=== PATIENT | male | born 1985 | race Caucasian/White ===

== ENCOUNTER 2018-07-06 23:31 | Inpatient (IN) | payer OTHER ==
[~2018-07-06] VITALS: Ht 175.3 cm; Wt 59.0 kg
[2018-07-06 23:45] VITALS: BP 138/63
[2018-07-06] MEDS ORDERED: NOVOLIN R100 UNIT/1 (23:53)
[2018-07-07] VITALS (16 sets, daily range): BP systolic 127–162; BP diastolic 78–95
[2018-07-07 00:17] LABS: HEMATOCRIT 53.2 % (42.0-52.0); HEMOGLOBIN 14.5 gm/dL (14.0-18.0); MCH 33.9 pg (26.0-34.0); MCHC 27.2 g/dL (28.0-37.0); MCV 124.7 fL (80.0-100.0); MPV 10.5 fl. (7.2-11.1); NUCLEATED RBCS 0 /100WBC; PLATELET COUNT* 285 thou/uL (150-400); RBC 4.27 mil/uL (4.50-6.00); RDW-CV 15.2 % (10.5-14.5); WBC 12.6 thou/uL (4.0-11.0)
[2018-07-07 00:29] LABS: BE -22.1 mmol/L (-2 to +3)
[2018-07-07 00:30] LABS: pH 7.121 (7.340-7.450)
[2018-07-07 00:31] LABS: PCO2 < 17.0 mmHg (35.0-45.0); PO2 125.7 mmHg (75.0-100.0)
[2018-07-07 00:38] LABS: ALBUMIN 4.1 g/dL (3.4-5.0); ALKALINE PHOSPHATASE 114 U/L (46-116); BUN 45 mg/dL (7-18); CALCIUM 8.6 mg/dL (8.5-10.1); CREATININE 3.8 mg/dL (0.6-1.3); LIPASE 1012 U/L (73-393); SGOT 64 U/L (15-37); SGPT 75 U/L (30-65); TOTAL BILIRUBIN 0.9 mg/dL (<0.1-1.0); TOTAL PROTEIN 7.5 g/dL (6.4-8.2); TROPONIN-I LEVEL <0.06 ng/mL (<0.06)
[2018-07-07 00:42] LABS: ANION GAP 33 mmol/L (7-16); CHLORIDE 72 mmol/L (98-107); CO2 9 mmol/L (21-32); POTASSIUM 6.3 mmol/L (3.5-5.1); SODIUM 114 mmol/L (136-145)
[2018-07-07 00:57] LABS: GLUCOSE 1897 mg/dL (70-99)
[2018-07-07 00:59] LABS: ABSOLUTE LYMPHOCYTES 0.1 thou/uL (0.8-5.3); ABSOLUTE MONOCYTES 0.4 thou/uL (0.0-1.2); ABSOLUTE NEUTROPHILS 12.1 thou/uL (1.6-8.1); PLATELET ESTIMATE ADEQUATE
[2018-07-07 01:00] LABS: ANISOCYTOSIS 1+; MACROCYTES 1+
[2018-07-07 01:32] LABS: URINE BILIRUBIN NEGATIVE (Negative); URINE BLOOD TRACE (Negative); URINE CLARITY CLEAR; URINE COLOR YELLOW; URINE GLUCOSE-RANDOM 3+ (Negative); URINE KETONES 2+ (Negative); URINE LEUKOCYTES-REFLEX NEGATIVE (Negative); URINE NITRITE-REFLEX NEGATIVE (Negative); URINE PROTEIN NEGATIVE (Negative); URINE SPECIFIC GRAVITY <= 1.005 (1.005-1.030); URINE UROBILINOGEN 0.2 E.U./dl (0.2-1.0)
[2018-07-07 03:46] LABS: CALCIUM 8.3 mg/dL (8.5-10.1); CREATININE 3.1 mg/dL (0.6-1.3)
[2018-07-07 03:48] LABS: POTASSIUM 4.6 mmol/L (3.5-5.1)
[2018-07-07 07:59] LABS: AMP/METHAMP Negative (Negative); BARBITURATES Negative (Negative); BENZODIAZEPINES Negative (Negative); COCAINE Negative (Negative); METHADONE Negative (Negative); OPIATES Negative (Negative); PCP Negative (Negative); THC Negative (Negative)
[2018-07-07 08:00] LABS: CALCIUM 9.2 mg/dL (8.5-10.1); CREATININE 2.4 mg/dL (0.6-1.3); MAGNESIUM 2.2 mg/dL (1.8-2.4); POTASSIUM 3.7 mmol/L (3.5-5.1)
--- NOTE | 2018-07-07 09:18 | NUR ---
RN RESUMED CARE OF PT THIS SHIFT. PT DENIES PAIN, NAUSEA, AND VOMITING SINCE LAST NIGHT AROUND MIDNIGHT. STATES HIS THROAT IS DRY AND SORE FROM BEING NPO. A&OX4. USING URINAL. VSS. ON ROOM AIR. REMAINS ON IVF AND INSULIN GTT. GI CONSULT PLACED AND PENDING. PT DENIES ANY FURTHER QUESTIONS/CONCERNS.
[2018-07-07 12:17] LABS: CALCIUM 9.2 mg/dL (8.5-10.1); CREATININE 1.8 mg/dL (0.6-1.3); MAGNESIUM 2.1 mg/dL (1.8-2.4); POTASSIUM 3.6 mmol/L (3.5-5.1)
--- NOTE | 2018-07-07 13:33 | EKG ---
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: [place] : 1985 Requested By: Jeremías Roman Order Number: [id number] MD: Tyler Gibbs Measurements Intervals [place] Rate: 123 P: 94 VT: 138 QRS: 95 QRSD: 98 T: -5 QT: 326 QTc: 467 Interpretive Statements Sinus tachycardia Borderline right axis deviation poor r wave progression Borderline repolarization abnormality ST elev, probable normal early repol pattern Baseline wander in lead(s) III,aVL,V1,V2 No previous ECG available for comparison Electronically Signed On 07-07-2018 13:33:33 CDT by Tyler Gibbs [email or web address] <ELECTRONICALLY SIGNED> By: Tyler Gibbs MD, FAC 07/07/18 1333 0001 0001 Tyler Gibbs MD, FAC /EPI
--- NOTE | 2018-07-07 15:59 | NUR ---
PT ADVACING TOWARDS GOALS EXPECTED. VSS. REMAINS ON ROOM AIR. BS STABLE. OFF INSULIN GTT THIS AFTERNOON. BS ACHS. IVF CONTINUE. TOLERATING CLEAR LIQUID/DIABETIC DIET, WILL ADVANCE TO REGULAR/DIABETIC DIET THIS EVENING. DENIES PAIN. EXPECTED TO DOWNGRADE THIS EVENING OR TOMORROW MORNING.
[2018-07-07 16:18] LABS: CALCIUM 8.9 mg/dL (8.5-10.1); CREATININE 1.5 mg/dL (0.6-1.3)
[2018-07-08] VITALS: BP 133/84
[2018-07-08 02:08] LABS: GLYCOHEMOGLOBIN (HGB A1C) 7.6 % (4.8-5.6)
[2018-07-08 04:00] VITALS: BP 143/90
--- NOTE | 2018-07-08 05:01 | NUR ---
PATIENT PARTIALLY PROGRESSING TOWARDS GOALS: PATIENT'S PAIN PARTIALLY MANAGED WITH PRN MEDICATION AND COLD APPLICATION. HOWEVER, PATIENT'S BLOOD PRESSURE SOFT THROUGHOUT SHIFT. PATIENT ASYMPTOMATIC OF LOW BP. PATIENT INSTRUCTED TO CALL STAFF BEFORE AMBULATING. PATIENT ON ROOM AIR WITH SATS >92%. HOURLY ROUNDING OBSERVED. CALL LIGHT WITHIN REACH
[2018-07-08 05:18] LABS: ALBUMIN 3.6 g/dL (3.4-5.0); CALCIUM 8.5 mg/dL (8.5-10.1); CREATININE 1.3 mg/dL (0.6-1.3); PHOSPHORUS* 2.3 mg/dL (2.5-4.9); POTASSIUM 3.6 mmol/L (3.5-5.1); TOTAL BILIRUBIN 0.7 mg/dL (<0.1-1.0); TOTAL PROTEIN 6.4 g/dL (6.4-8.2)
--- NOTE | 2018-07-08 05:20 | NUR ---
PATIENT TRANSFERRED TO UNIT AT 2135 FROM ICU. PATIENT PROGRESSING TOWARDS GOALS: PATIENT DENIES PAIN, DISCOMFORT, AND NAUSEA THROUGHOUT SHIFT. ACCUCHECK ACHS. BLOOD SUGAR THIS EVENING 276 TREATED WITH SLIDING SCALE INSULIN. IVF INFUSING PER ORDERS. PATIENT UP AD TALITA IN ROOM. PATIENT TOLERATING CLEAR LIQUIDS. HOURLY ROUNDING OBSERVED. CALL LIGHT WITHIN REACH
[2018-07-08 06:22] LABS: ABSOLUTE LYMPHOCYTES 1.3 thou/uL (0.8-5.3); ABSOLUTE MONOCYTES 0.4 thou/uL (0.0-1.2); ABSOLUTE NEUTROPHILS 8.1 thou/uL (1.6-8.1); BASOPHILS 0.4 %; EOSINOPHILS 0.1 %; HEMATOCRIT 39.4 % (42.0-52.0); HEMOGLOBIN 13.6 gm/dL (14.0-18.0); MCH 33.8 pg (26.0-34.0); MCHC 34.5 g/dL (28.0-37.0); MONOCYTES 4.4 %; NUCLEATED RBCS 0 /100WBC; POLYS 82.1 %; RBC 4.03 mil/uL (4.50-6.00); RDW-CV 14.7 % (10.5-14.5); WBC 9.9 thou/uL (4.0-11.0)
[2018-07-08 06:27] LABS: MCV 97.9 fL (80.0-100.0); PLATELET COUNT* 136 thou/uL (150-400)
[2018-07-08 08:00] VITALS: BP 144/80
[2018-07-08 11:16] LABS: URINE BILIRUBIN NEGATIVE (Negative); URINE BLOOD NEGATIVE (Negative); URINE CLARITY CLEAR; URINE COLOR YELLOW; URINE GLUCOSE-RANDOM 3+ (Negative); URINE KETONES 2+ (Negative); URINE LEUKOCYTES NEGATIVE (Negative); URINE NITRITE NEGATIVE (Negative); URINE PROTEIN NEGATIVE (Negative); URINE SPECIFIC GRAVITY <= 1.005 (1.005-1.030); URINE UROBILINOGEN 0.2 E.U./dl (0.2-1.0)
--- NOTE | 2018-07-08 13:24 | NUR ---
ASSUMED CARE OF PATIENT THIS AM AT 0730. PATIENT IS ALERT AN ORIENTED X 4. HE DENIES PAIN AND DISCOMFORT. PATIENT IS DRINKING A LOT OF WATER. HIS BLOOD SUGARS HAVE BEEN >[address] TREVINO IN TO ROUND PLANS DISCUSSED ABOUT DISCHARGING PATIENT TO HOME. DR FARIA PAGED TO DISCUSS SEEING PATIENT PRIOR TO DISCHARGE. DR FARIA IN AND DISCHARGE OKAYED.
[2018-07-08 13:36] VITALS: BP 144/80
--- NOTE | 2018-07-10 12:32 | CON ---
[address] [address] CONSULTATION Name: PRINCE,VINHBASIA SYKESEL Room: [address] IN M.R.#: [id number] Admission: 07/07/18 Attend Phys: Kenn Griggs MD Discharge: 07/08/18 Date of : 81 Report #: [id number] THIS REPORT FOR: //name// CC: Kenn Griggs [facility] physician/PCP DATE OF SERVICE: 07/08/2018 REASON FOR CONSULT: Nausea and vomiting. HISTORY OF PRESENT ILLNESS: This is a 32-year-old male with history of diabetes who reports that his sugar was running really high. He had some nausea and vomiting and CT initially had shown evidence of partial obstruction. His lipase was also elevated in the range of 1100, but CT did not show any evidence of pancreatitis. Since the patient's gap has been closed, he is feeling better. Denies nausea and vomiting and his labs have improved. He has tolerated diet without any abdominal pain, nausea, and vomiting. He had a bowel movement, which was free of blood. PAST MEDICAL HISTORY: Significant for history of diabetes mellitus. ALLERGIES: No known drug allergy. MEDICATIONS: Please refer to hospital MAR. SOCIAL HISTORY: The patient used to live in [place], but they have moved here. His conversion man is still there and he follows with him. He has not set up a primary care physician in [place] yet. The patient denies tobacco, alcohol, illicit drugs. FAMILY HISTORY: Noncontributory. PHYSICAL EXAMINATION: VITAL SIGNS: Reveals normal vitals. LUNGS: Clear. CARDIOVASCULAR: Regular. ABDOMEN: Soft, nontender, nondistended. Bowel sounds are positive. LABORATORY DATA: Revealed sodium of 140, potassium 3.6, BUN is 13, creatinine 1.3, glucose 196, AST is 51, ALT 24, alkaline phosphatase 73, lipase is 1012, hemoglobin A1c is 7.6. WBC is 9.9 with hemoglobin of 13.6 and platelet of 136. IMAGING: CT of abdomen and pelvis was obtained [place]. [place] [address] CONSULTATION Name: VINH MORRISON Room: [address] IN ..#: [id number] Admission: 07/07/18 Attend Phys: Kenn Griggs MD Discharge: 07/08/18 Date of : 81 Report #: [id number] initially suggestive of partial small-bowel obstruction without any discrete transition point. Follow up KUB today showed no evidence of obstruction or intraperitoneal free air. ASSESSMENT AND PLAN: I believe that the patient's GI symptoms including nausea, vomiting and abdominal pain were associated with diabetic ketoacidosis. Note, he has not had any previous nausea or vomiting prior to this episode. Now that his ketoacidosis has resolved, he is able to tolerate meals without any GI symptoms. His hemoglobin A1c is 7.6. I warned the patient that if he does not correct his blood sugars over time, he is at risk of developing gastroparesis among other complications of diabetes mellitus. We will follow up on p.r.n. basis. <ELECTRONICALLY SIGNED> By: Pia Moulton MD 07/10/18 1232 1307 [id number] Moulton MD /nt
== END 2018-07-08 14:00 | disposition home or self-care (01) | DRG 388 ==
LOC: M.ERS 23:31 → M.2W 07-07 03:46 → M.TBA-ER 07-07 03:46 → M.ICU 07-07 03:46 → M.2W 07-07 21:41
PROVIDERS: Emergency Medicine Emergency Medical Services; ADMIT Internal Medicine
DX: K56.609 Unspecified intestinal obstruction, unspecified as to partial versus complete obstruction (principal); E10.10 Type 1 diabetes mellitus with ketoacidosis without coma; K85.90 Acute pancreatitis without necrosis or infection, unspecified; E87.1 Hypo-osmolality and hyponatremia; N17.9 Acute kidney failure, unspecified; Z79.4 Long term (current) use of insulin; Z79.899 Other long term (current) drug therapy

== ENCOUNTER 2018-10-02 21:46 | Inpatient (IN) | payer OTHER ==
[~2018-10-02] VITALS: Ht 175.3 cm; Wt 91.6 kg
[~2018-10-02 21:46] MED LIST: NOVOLIN R100 UNIT/1
[2018-10-02 21:47] VITALS: BP 130/84
[2018-10-02 22:32] LABS: URINE BILIRUBIN NEGATIVE (Negative); URINE BLOOD 2+ (Negative); URINE CLARITY CLEAR; URINE COLOR YELLOW; URINE GLUCOSE-RANDOM NEGATIVE (Negative); URINE KETONES 1+ (Negative); URINE LEUKOCYTES-REFLEX NEGATIVE (Negative); URINE NITRITE-REFLEX NEGATIVE (Negative); URINE PROTEIN 2+ (Negative); URINE SPECIFIC GRAVITY >= 1.030 (1.005-1.030); URINE UROBILINOGEN 0.2 E.U./dl (0.2-1.0)
[2018-10-02 22:37] LABS: ABSOLUTE LYMPHOCYTES 0.8 thou/uL (0.8-5.3); ABSOLUTE MONOCYTES 0.6 thou/uL (0.0-1.2); ABSOLUTE NEUTROPHILS 4.1 thou/uL (1.6-8.1); BASOPHILS 0.6 %; EOSINOPHILS 0.5 %; HEMATOCRIT 44.9 % (42.0-52.0); HEMOGLOBIN 15.2 gm/dL (14.0-18.0); LYMPHOCYTES 15.1 %; MCH 33.9 pg (26.0-34.0); MCHC 33.9 g/dL (28.0-37.0); MCV 100.1 fL (80.0-100.0); MONOCYTES 10.1 %; MPV 8.9 fl. (7.2-11.1); NUCLEATED RBCS 0 /100WBC; PLATELET COUNT* 237 thou/uL (150-400); POLYS 73.7 %; RBC 4.49 mil/uL (4.50-6.00); RDW-CV 13.9 % (10.5-14.5); WBC 5.6 thou/uL (4.0-11.0)
[2018-10-02 22:41] LABS: AMP/METHAMP Negative (Negative); BARBITURATES Negative (Negative); BENZODIAZEPINES Negative (Negative); COCAINE Negative (Negative); METHADONE Negative (Negative); OPIATES Negative (Negative); PCP Negative (Negative); THC Negative (Negative)
[2018-10-02 22:48] LABS: ANION GAP 19 mmol/L (7-16); BUN 6 mg/dL (7-18); CALCIUM 9.7 mg/dL (8.5-10.1); CHLORIDE 98 mmol/L (98-107); CO2 23 mmol/L (21-32); CREATININE 1.1 mg/dL (0.6-1.3); GLUCOSE 78 mg/dL (70-99); POTASSIUM 3.3 mmol/L (3.5-5.1); SODIUM 140 mmol/L (136-145)
[2018-10-02 22:52] LABS: ALBUMIN 4.1 g/dL (3.4-5.0); ALKALINE PHOSPHATASE 86 U/L (46-116); MAGNESIUM 1.6 mg/dL (1.8-2.4); SGOT 103 U/L (15-37); SGPT 137 U/L (30-65); TOTAL BILIRUBIN 0.5 mg/dL (<0.1-1.0); TOTAL PROTEIN 7.4 g/dL (6.4-8.2)
[2018-10-02 22:59] LABS: HYALINE CASTS >10 Many /LPF (None Seen); MUCUS None Seen strn/LPF (None Seen); SQUAMOUS NONE SEEN /LPF (0-3)
[2018-10-02 23:00] LABS: BACTERIA-REFLEX None Seen /HPF (None Seen); CRYSTALS None Seen /LPF (None Seen); URINE RBC 3-10 Few /HPF (0-2); URINE WBC-REFLEX None Seen /HPF (0-5)
[2018-10-03] VITALS (7 sets, daily range): BP systolic 138–162; BP diastolic 78–94
[2018-10-03 01:24] LABS: BE 0.1 mmol/L (-2 to +3); HCO3 23.4 mmol/L (22.0-26.0); PO2 73.4 mmHg (75.0-100.0); pH 7.455 (7.340-7.450)
[2018-10-04] VITALS: BP 143/86
[2018-10-04 02:12] LABS: HEPATITIS B SURFACE AG Negative (Negative)
[2018-10-04 04:00] VITALS: BP 128/86
[2018-10-04 05:13] LABS: MAGNESIUM 1.8 mg/dL (1.8-2.4)
[2018-10-04 07:48] VITALS: BP 137/87
[2018-10-04 11:47] VITALS: BP 152/109
[2018-10-04 12:08] VITALS: BP 152/109
[2018-10-04 12:14] VITALS: BP 152/109
[2018-10-04] MEDS ORDERED: CITRATE OF MAG296 M1 PO (12:17)
[2018-10-04] MEDS ORDERED: MAGNESIUM OXID200 MG PO (12:32)
[2018-10-04] MEDS ORDERED: POTASSIUM CITRA5 MEQ PO (13:12)
--- NOTE | 2018-10-20 15:44 | CON ---
[address] [address] CONSULTATION Name: VINH MORRISON Room: [address] IN M.R.#: [id number] Admission: 10/03/18 Attend Phys: Johanna Menon MD Discharge: 10/04/18 Date of : 81 Report #: [id number] THIS REPORT FOR: //name// CC: [facility] physician/PCP Johanna Menon DATE OF SERVICE: 10/03/2018 HISTORY OF PRESENT ILLNESS: This is a 33-year-old male patient who was evaluated for seizure. The seizure happened yesterday. The patient was sitting on the sofa and was watching the television. He does not remember anything after that. He remembers he has taken his insulin, but has not eaten yet. He had a feeling that he was getting hypoglycemic. He also was having some nausea, vomiting at that time. Father was there and he noticed that the patient started having grand mal seizures with the eyes rolling into his head and frothing from his mouth. He did not bite his tongue. He was confused after the episode. However, even during the episode when the father asked him to lie still on the bed, he did follow that commands. Father did check his blood sugar and it was in 70s and patient thinks his blood sugar may have come up at that time. The patient had another seizure earlier this year. That was obviously related to hypoglycemia. He was in similar situation where he has taken his insulin, but has not eaten anything, but that time, he had a documented hypoglycemia. In the last few days, they have also noticed that the patient has developed tremor. It is more pronounced on the left upper extremity than the right upper extremity. REVIEW OF SYSTEMS: A 14-point review of system was carried out and the relevant 14-point review of system is as follows: The patient has a history of some low magnesium when he is here, his blood sugar is abnormal. His lactic acid was high, but it has come down. He has no ophthalmological problem associated with diabetes. He denies any prior history of heart attack or stroke. Presently, he is not complaining of any new eye, ENT, cardiac, respiratory, GI, , musculoskeletal, constitutional, dermatological, hematological, psychiatric, throat or allergic symptom associated with present symptomatology. PAST MEDICAL HISTORY: Positive for another seizure earlier this year, but that was because of documented hypoglycemia. FAMILY HISTORY: Negative for congenital epilepsy. SOCIAL HISTORY: He drinks alcohol in moderation and does not smoke. PHYSICAL EXAMINATION: Indicate he is alert, responsive, [place] [address] CONSULTATION Name: VINH MORRISON Room: [address] IN ..#: [id number] Admission: 10/03/18 Attend Phys: Johanna Menon MD Discharge: 10/04/18 Date of : 81 Report #: [id number] and complex command. He believes his higher function is back to the baseline. He has no speech difficulty or any change in memory or fund of knowledge. Cranial nerve examination 2-12 looks unremarkable. Strength, sensation, reflexes and tone is symmetrical. There is no cerebellar sign. There is no papilledema. The patient does have some tremor at least in the left upper extremity. He is a moderately built individual who does not have any dysmorphic features of eyes, ears and face. His vision and hearing looks adequate. His pulses are palpable. He has no edema, cyanosis or jaundice. Cardiac examination is unremarkable. No respiratory difficulty or rhonchi was noticed on either side. His blood pressure is 150/80, respirations 19, pulse is 110, and temperature is 98.7. His pulse has been as high as 134. He did have a CT scan of the head which was unremarkable. IMPRESSION: His seizure earlier this year was because of documented hypoglycemia. Presently, there is no documented hypoglycemia. Therefore, we will check for other etiology. We will do an MRI of the brain and EEG. I do not know why he is tremulous. We will check a thyroid function test and await rest of the workup. His liver function is also abnormal, but again I do not know why it is abnormal and may need some more workup, which I will defer to you. RECOMMENDATIONS: 1. MRI of the brain. 2. EEG. 3. He does need some workup for his abnormal liver function and slightly increased MCV. He should not drink any alcohol at all and all of it was discussed with him. He also needs to take seizure precautions and I discussed the driving laws in [place] that by those laws he cannot drive for 6 months. He understood all those. We will see if this workup shows and we will follow up this patient. <ELECTRONICALLY SIGNED> By: Darrin Rodriguez MD 10/20/18 1544 [id number] [id number] Rodriguez MD /nt
--- NOTE | 2018-10-20 15:44 | EEG ---
[address] [address] EEG STUDY REPORT Name: VINH MORRISON Room: [address] IN M.R.#: [id number] Admission: 10/03/18 Attend Phys: Johanna Menon MD Discharge: 10/04/18 Date of : 81 Report #: [id number] THIS REPORT FOR: //name// CC: [facility] physician/PCP Johanna Menon DATE OF SERVICE: 10/03/2018 This patient had an episode of seizure. EEG was done by placing the electrodes by standard 10-20 system of electrode placement. Both referential and sequential montages were used for recording. Background activity in this patient's EEG is about 9 Hz and 30 microvolt. The patient became drowsy that is associated with bilateral slowing and vertex sharp waves. Photic stimulation is unremarkable. Throughout the record, no active epileptiform activity was noticed. IMPRESSION: This patient's EEG is masked by a lot of eye movement artifact and is difficult to interpret. It does not appear to be showing any active epileptiform activity. <ELECTRONICALLY SIGNED> By: Darrin Rodriguez MD 10/20/18 1544 [id number] [id number] Rodriguez MD /nt
== END 2018-10-04 13:30 | disposition home or self-care (01) | DRG 638 ==
LOC: M.ERS 21:46 → M.2W 10-03 01:04 → M.TBA-ER 10-03 01:04 → M.2W 10-03 02:15
PROVIDERS: Internal Medicine; Personal Emergency Response Attendant; ADMIT Internal Medicine
DX: E11.649 Type 2 diabetes mellitus with hypoglycemia without coma (principal); E87.2 Acidosis; R56.9 Unspecified convulsions; R25.1 Tremor, unspecified; F10.10 Alcohol abuse, uncomplicated; K75.9 Inflammatory liver disease, unspecified; Z79.4 Long term (current) use of insulin